=== PATIENT | female | born 1950 | race Caucasian/White ===

== ENCOUNTER 2016-11-12 12:18 | Emergency (ER) | payer BC, OTHER ==
[~2016-11-12] VITALS: Ht 162.6 cm; Wt 51.7 kg
[2016-11-12] MEDS ORDERED: ACYC1CAP8 PO (12:33)
[2016-11-12] MEDS ORDERED: ATOR40TA PO (12:33)
[2016-11-12] MEDS ORDERED: ZOLO100T PO (12:33)
[2016-11-12] MEDS ORDERED: LEVO125T3 PO (12:33)
[2016-11-12] MEDS ORDERED: ONDANSETRON 4MG/2ML VIAL (J2405) IV ONE (13:00)
[2016-11-12] MEDS ORDERED: KETOROLAC 30 MG/ML VIAL (J1885) IV ONE (13:00)
[2016-11-12] MEDS ORDERED: NS 1,000 ML IV ONE (13:00)
[2016-11-12] MEDS: MORPHINE 4 MG/ML 1ML SYRINGE IV PRN ×2 (13:09→13:57)
[2016-11-12 13:19] LABS: INR 0.91
[2016-11-12 13:20] LABS: ALBUMIN 3.8 GM/DL (3.2-5.2); ALBUMIN/GLOBULIN RATIO 1.06 (1.00-1.93); ALKALINE PHOSPHATASE 73 U/L (45-117); ALT/SGPT 23 U/L (12-78); AMYLASE 72 U/L (25-115); ANION GAP 7 MEQ/L (8-16); AST/SGOT 24 U/L (15-37); BILIRUBIN,DIRECT < 0.1 MG/DL (0.0-0.2); BILIRUBIN,TOTAL 0.3 MG/DL (0.2-1.0); BLOOD UREA NITROGEN 30 MG/DL (7-18); CALCIUM LEVEL 9.2 MG/DL (8.8-10.2); CARBON DIOXIDE LEVEL 26 MEQ/L (21-32); CHLORIDE LEVEL 107 MEQ/L (98-107); GLOMERULAR FILTRATION RATE > 60.0 (>45); GLUCOSE, FASTING 95 MG/DL (80-110); POTASSIUM SERUM 4.7 MEQ/L (3.5-5.1); SODIUM LEVEL 140 MEQ/L (136-145); TOTAL PROTEIN 7.4 GM/DL (6.4-8.2)
--- NOTE | 2016-11-12 13:33 | REP ---
Clinical: Left flank pain. Findings: Edematous enlargement of the left kidney is appreciated with mild perinephric stranding as well as hydroureteronephrosis secondary to an 8 mm obstructing calculus at the ureterovesicle junction (images 122 [id number] 123). Right kidney includes 5.6 cm cyst without nephrolithiasis or hydronephrosis. Liver demonstrates 2 cm hypodensity in the posterior segment right lobe which may represent cyst versus hemangioma. Spleen, pancreas, gallbladder, and bilateral adrenal glands are normal. The enteric system is without obstruction or acute inflammatory process although mild fecal stasis suggested. Pelvis demonstrates bladder as described above and evidence for prior hysterectomy. No ascites. No free air. No obvious adenopathy. Abdominal aorta without aneurysm. Musculoskeletal structures demonstrate age-related degenerative changes. Lung bases demonstrate chronic change. Impression: 1. Acute left-sided obstructive uropathy with a 8 mm calculus at the ureterovesicle junction. No further intrarenal calculi noted bilaterally. 2. 5.6 cm right renal cyst. Signed by Geraldo Oneill MD 11/12/2016 01:24 P
[2016-11-12 13:44] LABS: BASO % 0.5 % (0.0-1.0); EOS # 0.3 K/mm3 (0.0-0.50); EOS % 3.4 % (0.0-3.0); LARGE UNSTAINED CELL # 0.1 K/mm3 (0.0-0.4); LARGE UNSTAINED CELL % 1.2 % (0.0-4.0); LYMPH # 1.6 K/mm3 (1.5-4.5); LYMPH % 16.4 % (24.0-44.0); MEAN CORPUSCULAR HEMOGLOBIN 34.3 pg (27.0-33.0); MEAN CORPUSCULAR HGB CONC 34.2 g/dl (32.0-36.5); MEAN CORPUSCULAR VOLUME 100.3 fl (80.0-96.0); MONO # 0.5 K/mm3 (0.0-0.8); MONO % 5.3 % (0.0-5.0); NEUTROPHILS % 73.2 % (36.0-66.0); PLATELET COUNT, AUTOMATED 246 k/mm3 (150-450); WHITE BLOOD COUNT 9.5 K/mm3 (4.0-10.0)
[2016-11-12] MEDS ORDERED: PERC5TAB6 PO (15:57)
[2016-11-12] MEDS ORDERED: FLOM5CAP PO (15:57)
[2016-11-12] MEDS ORDERED: IBUP600T26 PO (15:58)
[2016-11-12] MEDS ORDERED: ZOFR4TAB3 PO (15:59)
[2016-11-12] MEDS ORDERED: TAMSULOSIN 0.4 MG CAP PO ONE (16:00)
[2016-11-12] MEDS ORDERED: PERCOCET 5MG/325MG TAB PO ONE ×2 (16:00)
[2016-11-12 16:27] VITALS: BP 115/72
== END 2016-11-12 16:32 | disposition home or self-care (01) ==
LOC: M ED 16:02
DX: N13.2 Hydronephrosis with renal and ureteral calculous obstruction (principal); N28.1 Cyst of kidney, acquired; E78.00 Pure hypercholesterolemia, unspecified; Z87.442 Personal history of urinary calculi; Z90.79 Acquired absence of other genital organ(s); Z79.899 Other long term (current) drug therapy; Z88.2 Allergy status to sulfonamides
CPT/HCPCS: 74176; 80048; 80076; 81001; 82150; 83605; 83690; 85025; 85610; 85730; 87086; 93041; 96361; 96374; 96375; 96376; 99284; J1885; J2405

== ENCOUNTER → 2016-11-12 | Outpatient (REF) | payer OTHER ==
[~2016-11-12] MED LIST: ACYC1CAP8 PO; ATOR40TA PO; FLOM5CAP PO; IBUP600T26 PO; LEVO125T3 PO; PERC5TAB6 PO; ZOFR4TAB3 PO; ZOLO100T PO
== END ==
LOC: M LAB REF 09:52
PROVIDERS: ATTEND Physician Assistant Medical
DX: R10.9 Unspecified abdominal pain (principal)